=== PATIENT | female | born 1940 | race Caucasian/White ===

== ENCOUNTER 2023-02-21 13:28 | Inpatient (IN) | payer OTHER ==
[~2023-02-21] VITALS: Ht 167.6 cm; Wt 75.2 kg
[2023-02-21] MEDS ORDERED: SODIUM CHLORIDE 0.9% 1,000 ML IV ONE ×2 (13:45→15:00)
[2023-02-21 14:11] LABS: Basophils # (auto) 0.1 10 ^3/uL (0-0.2); Basophils % (auto) 0.5 % (0.0-2.0); Eosinophils # (auto) 0.1 10 ^3/uL (0-0.8); Eosinophils % (auto) 1.3 % (0.0-7.0); Hematocrit 39.8 % (36.0-46.0); Hemoglobin 12.8 g/dL (12.2-16.2); Lymphocytes # (auto) 1.8 10 ^3/uL (0.4-5.4); Lymphocytes % (auto) 15.6 % (10.0-50.0); Mean Corpuscular Hemoglobin 28.2 pg (28.0-32.0); Mean Corpuscular Hgb Conc. 32.1 g/dL (32.0-36.0); Mean Corpuscular Volume 87.8 fL (80.0-100.0); Monocytes % (auto) 8.5 % (0.0-12.0); Neutrophils # (auto) 8.4 10 ^3/uL (1.6-8.6); Neutrophils % (auto) 74.1 % (37.0-80.0); Nucleated Red Blood Cells % 0.1 %; Red Blood Cells 4.53 10^6/uL (4.0-5.20); Red Cell Distribution Width 14.9 % (11.8-14.3); White Blood Cell 11.4 10^3/uL (4.4-10.8)
[2023-02-21 14:29] LABS: Alanine Aminotransferase 49 U/L (7-40); Albumin 3.8 g/dL (3.2-4.8); Alkaline Phosphatase 67 U/L (46-116); Anion Gap 7 (5-15); Aspartate Aminotransferase 43 U/L (13-40); Bilirubin, Total 0.7 mg/dL (0.2-1.0); Blood Urea Nitrogen 26 mg/dL (9-23); Calcium 9.1 mg/dL (8.7-10.4); Carbon Dioxide 27 mmol/L (20-30); Chloride 106 mmol/L (98-107); Glucose 102 mg/dL (74-106); Potassium 3.8 mmol/L (3.5-5.1); Sodium 140 mmol/L (136-145); Total Protein 6.1 g/dL (5.7-8.2)
[2023-02-21] MEDS ORDERED: ONDANSETRON HCL 4 MG/2 ML VIAL IV PRN (15:00)
[2023-02-21] MEDS ORDERED: MORPHINE SULFATE INJ 2 MG/ml SYRG IV PRN (15:00)
[2023-02-21] MEDS ORDERED: NITROGLYCERIN 0.4 MG SL TAB SL PRN (15:00)
[2023-02-21 15:24] LABS: Urine Bacteria FEW /hpf (None Seen); Urine Blood TRACE /uL (Negative); Urine Clarity CLOUDY (Clear); Urine Color Yellow (Yellow); Urine Mucus FEW (None Seen); Urine Protein, UAD 1+ (Negative); Urine Specific Gravity 1.021 (1.001-1.035); Urine WBC 1026 /hpf (0 - 5); Urine pH 7.5 (5.0-8.0)
[2023-02-21] MEDS ORDERED: cefTRIAXone 1GM/50ML D5W 50 ML IV ONE (17:34)
[2023-02-21] MEDS: cefTRIAXone 1GM/50ML D5W 50 ML IV SCH (17:39)
[2023-02-21 17:40] VITALS: PULSE 74; RESP 18; O2SAT 96
[2023-02-21 17:59] LABS: COVID19 ANTIGEN SOFIA FIA NEGATIVE (NEGATIVE)
[2023-02-21] MEDS: ASCORBIC ACID 500 MG TAB PO SCH (22:30)
[2023-02-22] VITALS (9 sets, daily range): BP systolic 100–134; BP diastolic 43–77; PULSE 100–144; RESP 18–20; TEMP 97.7–98.9; O2SAT 92–100
[2023-02-22] MEDS: ACETAMINOPHEN 325 MG TAB PO PRN (03:04)
[2023-02-22] MEDS ORDERED: WARF4TAB70 PO (04:38)
[2023-02-22] MEDS ORDERED: FLUT50SP NAS (04:38)
[2023-02-22] MEDS ORDERED: DILT-100 PO (04:38)
[2023-02-22] MEDS ORDERED: PANT40T PO (04:38)
[2023-02-22] MEDS ORDERED: CHOL100047 PO (04:38)
[2023-02-22] MEDS ORDERED: ATOR-47 PO (04:38)
[2023-02-22] MEDS ORDERED: ALBU108A5 INH (04:38)
[2023-02-22] MEDS ORDERED: ALLO100T PO (04:38)
[2023-02-22] MEDS ORDERED: SERT-206 PO (04:38)
[2023-02-22] MEDS ORDERED: SERT-160 PO (04:38)
[2023-02-22] MEDS ORDERED: GABA-1250 PO (04:38)
[2023-02-22] MEDS ORDERED: FENO145T27 PO (04:38)
[2023-02-22] MEDS ORDERED: MAGN1TAB32 PO (04:39)
[2023-02-22] MEDS ORDERED: dilTIAZem 25 MG/5 ML VIAL IV ONE (05:45)
[2023-02-22 06:44] LABS: Basophils # (auto) 0 10 ^3/uL (0-0.2); Basophils % (auto) 0.5 % (0.0-2.0); Eosinophils # (auto) 0.1 10 ^3/uL (0-0.8); Eosinophils % (auto) 1.8 % (0.0-7.0); Hematocrit 32.8 % (36.0-46.0); Hemoglobin 10.7 g/dL (12.2-16.2); Lymphocytes # (auto) 1.6 10 ^3/uL (0.4-5.4); Lymphocytes % (auto) 19.2 % (10.0-50.0); Mean Corpuscular Hemoglobin 28.8 pg (28.0-32.0); Mean Corpuscular Hgb Conc. 32.7 g/dL (32.0-36.0); Mean Corpuscular Volume 88.1 fL (80.0-100.0); Monocytes # (auto) 0.8 10 ^3/uL (0-1.3); Monocytes % (auto) 10.3 % (0.0-12.0); Neutrophils # (auto) 5.5 10 ^3/uL (1.6-8.6); Neutrophils % (auto) 68.2 % (37.0-80.0); Nucleated Red Blood Cells % 0.1 %; Red Blood Cells 3.73 10^6/uL (4.0-5.20); Red Cell Distribution Width 14.9 % (11.8-14.3); White Blood Cell 8.1 10^3/uL (4.4-10.8)
[2023-02-22 06:50] LABS: Alanine Aminotransferase 35 U/L (7-40); Albumin 3.3 g/dL (3.2-4.8); Alkaline Phosphatase 52 U/L (46-116); Anion Gap 7 (5-15); Aspartate Aminotransferase 25 U/L (13-40); BUN/Creatinine Ratio 17.5 (10.0-20.0); Blood Urea Nitrogen 27 mg/dL (9-23); Calcium 8.7 mg/dL (8.7-10.4); Carbon Dioxide 25 mmol/L (20-30); Chloride 109 mmol/L (98-107); Glucose 104 mg/dL (74-106); Magnesium 1.6 mg/dL (1.6-2.6); Potassium 3.3 mmol/L (3.5-5.1); Sodium 141 mmol/L (136-145)
[2023-02-22 06:51] LABS: Bilirubin, Total 0.7 mg/dL (0.2-1.0); Total Protein 5.5 g/dL (5.7-8.2)
[2023-02-22] MEDS ORDERED: POTASSIUM CHL 20 Meq TABLET PO ONE (08:00)
[2023-02-22] MEDS: ZINC SULFATE 220mg CAP or TAB PO SCH (08:10)
[2023-02-22] MEDS: cefTRIAXone 1GM/50ML D5W 50 ML IV SCH (08:10)
[2023-02-22] MEDS: ASCORBIC ACID 500 MG TAB PO SCH ×2 (08:11→21:39)
[2023-02-22] MEDS: CHOLECALCIFEROL (VITD3) 2,000 UNIT CAP/TAB PO SCH (08:11)
[2023-02-22] MEDS: MAGNESIUM OXIDE 400 MG TAB PO SCH ×2 (08:17→21:39)
[2023-02-22] MEDS: SODIUM CHLORIDE 0.9% 1,000 ML IV SCH ×2 (09:30→19:30)
[2023-02-22] MEDS ORDERED: SODIUM CHLORIDE 0.9% 500 ML IV ONE (09:30)
[2023-02-22] MEDS ORDERED: dilTIAZem 120MG ER CAP PO SCH (10:00)
[2023-02-22] MEDS ORDERED: dilTIAZem 120MG ER CAP PO ONE (11:00)
[2023-02-22 12:18] LABS: INR 1.14 (0.9-1.15); Prothrombin Time 11.9 sec (9.3-11.8)
[2023-02-22] MEDS ORDERED: DIGOXIN (250MCG/ML) 2 ML AMPULE IV ONE (14:00)
[2023-02-22] MEDS ORDERED: WARFARIN SODIUM 5 MG TAB PO ONE (17:00)
[2023-02-22] MEDS: GABAPENTIN 300 MG CAP PO SCH (21:39)
[2023-02-22] MEDS: TEMAZEPAM 15 MG CAP PO PRN (21:40)
[2023-02-22] MEDS: dilTIAZem 120MG ER CAP PO SCH (21:41)
[2023-02-23 05:00] VITALS: BP 121/58; PULSE 82; RESP 20; TEMP 98.2; O2SAT 97
[2023-02-23] MEDS: SODIUM CHLORIDE 0.9% 1,000 ML IV SCH ×3 (05:30→23:54)
[2023-02-23 07:14] LABS: INR 1.19 (0.9-1.15); Partial Thromboplastin Time 23.4 SEC (24.5-34.5); Prothrombin Time 12.4 sec (9.3-11.8)
[2023-02-23 08:00] VITALS: BP 106/53; PULSE 106; PULSE 93; RESP 20; TEMP 98; O2SAT 100
[2023-02-23 10:32] LABS: Basophils # (auto) 0 10 ^3/uL (0-0.2); Basophils % (auto) 0.4 % (0.0-2.0); Eosinophils # (auto) 0.1 10 ^3/uL (0-0.8); Eosinophils % (auto) 1.6 % (0.0-7.0); Hematocrit 35.3 % (36.0-46.0); Hemoglobin 11.3 g/dL (12.2-16.2); Lymphocytes # (auto) 1.3 10 ^3/uL (0.4-5.4); Lymphocytes % (auto) 18.3 % (10.0-50.0); Mean Corpuscular Hemoglobin 28.3 pg (28.0-32.0); Mean Corpuscular Volume 88.6 fL (80.0-100.0); Monocytes # (auto) 0.5 10 ^3/uL (0-1.3); Monocytes % (auto) 7.3 % (0.0-12.0); Neutrophils # (auto) 5.3 10 ^3/uL (1.6-8.6); Neutrophils % (auto) 72.4 % (37.0-80.0); Red Blood Cells 3.98 10^6/uL (4.0-5.20); Red Cell Distribution Width 15.1 % (11.8-14.3); White Blood Cell 7.3 10^3/uL (4.4-10.8)
[2023-02-23] MEDS: cefTRIAXone 1GM/50ML D5W 50 ML IV SCH (10:37)
[2023-02-23] MEDS: CHOLECALCIFEROL (VITD3) 2,000 UNIT CAP/TAB PO SCH (10:43)
[2023-02-23] MEDS: dilTIAZem 120MG ER CAP PO SCH ×2 (10:43→21:49)
[2023-02-23] MEDS: ASCORBIC ACID 500 MG TAB PO SCH ×2 (10:43→21:58)
[2023-02-23] MEDS: GABAPENTIN 300 MG CAP PO SCH ×2 (10:43→21:48)
[2023-02-23] MEDS: ZINC SULFATE 220mg CAP or TAB PO SCH (10:43)
[2023-02-23] MEDS: MAGNESIUM OXIDE 400 MG TAB PO SCH ×2 (10:44→21:48)
[2023-02-23 10:51] LABS: Alanine Aminotransferase 38 U/L (7-40); Albumin 3.6 g/dL (3.2-4.8); Alkaline Phosphatase 61 U/L (46-116); Anion Gap 4 (5-15); Aspartate Aminotransferase 36 U/L (13-40); BUN/Creatinine Ratio 12.9 (10.0-20.0); Blood Urea Nitrogen 13 mg/dL (9-23); Carbon Dioxide 29 mmol/L (20-30); Chloride 112 mmol/L (98-107); Glucose 116 mg/dL (74-106); LDL Cholesterol 85 mg/dL (< 100); Potassium 4.1 mmol/L (3.5-5.1); Sodium 145 mmol/L (136-145); Triglycerides 284 mg/dL (< 150)
[2023-02-23 10:52] LABS: Bilirubin, Total 0.5 mg/dL (0.2-1.0); Cholesterol 195 mg/dL (< 200); HDL Cholesterol 29 mg/dL (40-59); Total Protein 5.9 g/dL (5.7-8.2)
[2023-02-23 11:08] LABS: Magnesium 1.8 mg/dL (1.6-2.6)
[2023-02-23 12:00] VITALS: BP 122/68; PULSE 105; RESP 20; TEMP 98.8; O2SAT 98
[2023-02-23 16:00] VITALS: BP 139/66; PULSE 105; RESP 20; TEMP 98.7; O2SAT 99
[2023-02-23] MEDS ORDERED: WARFARIN SODIUM 5 MG TAB PO ONE (17:00)
[2023-02-23] MEDS ORDERED: DIGOXIN (250MCG/ML) 2 ML AMPULE IV ONE (18:15)
[2023-02-23 20:00] VITALS: BP 130/80; PULSE 105; PULSE 114; RESP 18; O2SAT 98
[2023-02-23] MEDS: TEMAZEPAM 15 MG CAP PO PRN (21:53)
[2023-02-23 22:16] VITALS: BP 123/65; PULSE 128; RESP 19; TEMP 98.4; O2SAT 98
[2023-02-24] VITALS (7 sets, daily range): BP systolic 112–137; BP diastolic 50–86; PULSE 66–129; RESP 17–20; TEMP 98–99; O2SAT 97–100
[2023-02-24 06:02] LABS: INR 1.76 (0.9-1.15); Partial Thromboplastin Time 26.5 SEC (24.5-34.5); Prothrombin Time 17.8 sec (9.3-11.8)
[2023-02-24 06:14] LABS: Anion Gap 6 (5-15); Carbon Dioxide 26 mmol/L (20-30); Chloride 112 mmol/L (98-107); Potassium 3.7 mmol/L (3.5-5.1); Sodium 144 mmol/L (136-145)
[2023-02-24 06:15] LABS: Calcium 8.5 mg/dL (8.7-10.4)
[2023-02-24 06:20] LABS: BUN/Creatinine Ratio 10.6 (10.0-20.0); Blood Urea Nitrogen 10 mg/dL (9-23); Glucose 96 mg/dL (74-106)
[2023-02-24] MEDS: cefTRIAXone 1GM/50ML D5W 50 ML IV SCH (09:24)
[2023-02-24] MEDS: GABAPENTIN 300 MG CAP PO SCH ×2 (09:32→21:58)
[2023-02-24] MEDS: MAGNESIUM OXIDE 400 MG TAB PO SCH ×2 (09:32→21:58)
[2023-02-24] MEDS: ZINC SULFATE 220mg CAP or TAB PO SCH (09:32)
[2023-02-24] MEDS: dilTIAZem 120MG ER CAP PO SCH ×2 (09:33→21:59)
[2023-02-24] MEDS: CHOLECALCIFEROL (VITD3) 2,000 UNIT CAP/TAB PO SCH (09:33)
[2023-02-24] MEDS: ASCORBIC ACID 500 MG TAB PO SCH ×2 (09:34→21:59)
[2023-02-24] MEDS: DIGOXIN (250MCG/ML) 2 ML AMPULE IV SCH (09:35)
[2023-02-24] MEDS: SODIUM CHLORIDE 0.9% 1,000 ML IV SCH (09:49)
[2023-02-24] MEDS ORDERED: FUROSEMIDE 40 MG/4 ML VIAL IV ONE (15:15)
[2023-02-24] MEDS ORDERED: WARFARIN SODIUM 2 MG TAB PO ONE (17:00)
[2023-02-24] MEDS: guaiFENesin-DM 100/10mg/5ml SYR PO PRN ×2 (18:13→22:26)
[2023-02-24] MEDS: TEMAZEPAM 15 MG CAP PO PRN (21:58)
[2023-02-25] VITALS (9 sets, daily range): BP systolic 118–150; BP diastolic 55–74; PULSE 61–126; RESP 18–22; TEMP 97.9–98.5; O2SAT 92–99
[2023-02-25] MEDS: guaiFENesin-DM 100/10mg/5ml SYR PO PRN ×2 (04:47→16:01)
[2023-02-25 05:50] LABS: Calcium 8.6 mg/dL (8.7-10.4); Chloride 106 mmol/L (98-107); Potassium 3.6 mmol/L (3.5-5.1); Sodium 141 mmol/L (136-145)
[2023-02-25 05:51] LABS: Anion Gap 5 (5-15); Carbon Dioxide 30 mmol/L (20-30)
[2023-02-25 05:57] LABS: BUN/Creatinine Ratio 7.8 (10.0-20.0); Blood Urea Nitrogen 7 mg/dL (9-23); Glucose 101 mg/dL (74-106)
[2023-02-25 06:05] LABS: INR 1.91 (0.9-1.15); Partial Thromboplastin Time 40.4 SEC (24.5-34.5); Prothrombin Time 19.2 sec (9.3-11.8)
[2023-02-25] MEDS: cefTRIAXone 1GM/50ML D5W 50 ML IV SCH (09:11)
[2023-02-25] MEDS: ZINC SULFATE 220mg CAP or TAB PO SCH (09:59)
[2023-02-25] MEDS: GABAPENTIN 300 MG CAP PO SCH ×2 (10:00→22:48)
[2023-02-25] MEDS: ASCORBIC ACID 500 MG TAB PO SCH ×2 (10:00→22:49)
[2023-02-25] MEDS: MAGNESIUM OXIDE 400 MG TAB PO SCH ×2 (10:00→22:48)
[2023-02-25] MEDS ORDERED: methylPREDNISolone SOD SUCC 125 MG/2 ML VL IV ONE (10:00)
[2023-02-25] MEDS: dilTIAZem 120MG ER CAP PO SCH ×2 (10:00→22:49)
[2023-02-25] MEDS: CHOLECALCIFEROL (VITD3) 2,000 UNIT CAP/TAB PO SCH (10:00)
[2023-02-25] MEDS: DIGOXIN (250MCG/ML) 2 ML AMPULE IV SCH (10:01)
[2023-02-25] MEDS: AZITHROMYCIN 500MG/ 250ML 250 ML IV SCH (12:03)
[2023-02-25] MEDS ORDERED: WARFARIN SODIUM 2 MG TAB PO ONE (17:00)
[2023-02-25] MEDS: methylPREDNISolone SOD SUCC 125 MG/2 ML VL IV SCH (22:50)
[2023-02-25] MEDS: TEMAZEPAM 15 MG CAP PO PRN (22:53)
[2023-02-26] VITALS (11 sets, daily range): BP systolic 118–144; BP diastolic 49–80; PULSE 91–97; RESP 18–26; TEMP 97.8–98.4; O2SAT 95–100
[2023-02-26 07:05] LABS: Basophils # (auto) 0 10 ^3/uL (0-0.2); Basophils % (auto) 0.2 % (0.0-2.0); Eosinophils # (auto) 0 10 ^3/uL (0-0.8); Hematocrit 32.3 % (36.0-46.0); Hemoglobin 10.6 g/dL (12.2-16.2); Lymphocytes # (auto) 0.6 10 ^3/uL (0.4-5.4); Lymphocytes % (auto) 17.7 % (10.0-50.0); Mean Corpuscular Hemoglobin 28.8 pg (28.0-32.0); Mean Corpuscular Hgb Conc. 32.7 g/dL (32.0-36.0); Monocytes # (auto) 0.1 10 ^3/uL (0-1.3); Monocytes % (auto) 3.6 % (0.0-12.0); Neutrophils # (auto) 2.7 10 ^3/uL (1.6-8.6); Neutrophils % (auto) 78.5 % (37.0-80.0); Red Blood Cells 3.67 10^6/uL (4.0-5.20); Red Cell Distribution Width 15.5 % (11.8-14.3); White Blood Cell 3.4 10^3/uL (4.4-10.8)
[2023-02-26 07:14] LABS: INR 2.62 (0.9-1.15); Partial Thromboplastin Time 41.2 SEC (24.5-34.5); Prothrombin Time 25.8 sec (9.3-11.8)
[2023-02-26] MEDS: ZINC SULFATE 220mg CAP or TAB PO SCH (08:41)
[2023-02-26] MEDS: GABAPENTIN 300 MG CAP PO SCH ×2 (08:41→21:55)
[2023-02-26] MEDS: MAGNESIUM OXIDE 400 MG TAB PO SCH ×2 (08:41→21:55)
[2023-02-26] MEDS: ASCORBIC ACID 500 MG TAB PO SCH ×2 (08:41→21:55)
[2023-02-26] MEDS: CHOLECALCIFEROL (VITD3) 2,000 UNIT CAP/TAB PO SCH (08:41)
[2023-02-26] MEDS: cefTRIAXone 1GM/50ML D5W 50 ML IV SCH (08:44)
[2023-02-26] MEDS: methylPREDNISolone SOD SUCC 125 MG/2 ML VL IV SCH ×2 (08:44→21:56)
[2023-02-26] MEDS: dilTIAZem 120MG ER CAP PO SCH ×2 (09:20→21:52)
[2023-02-26] MEDS: AZITHROMYCIN 500MG/ 250ML 250 ML IV SCH (11:32)
[2023-02-26] MEDS: DIGOXIN 0.125 MG TAB PO SCH (11:32)
[2023-02-26] MEDS: ALBUTEROL MEDNEB 2.5 mg/3ml NEB NEB PRN (18:50)
[2023-02-26] MEDS: IPRATROPIUM BROM 0.5 MG/2.5ML INH SOL NEB PRN (18:50)
[2023-02-26] MEDS: TEMAZEPAM 15 MG CAP PO PRN (21:55)
[2023-02-26] MEDS: BUDESONIDE (INHALATION) 0.5 MG/2 ML NEB NEB SCH (22:00)
[2023-02-27] VITALS (12 sets, daily range): BP systolic 123–144; BP diastolic 45–72; PULSE 81–107; RESP 18–20; TEMP 97.7–98.6; O2SAT 95–99
[2023-02-27 06:02] LABS: INR 2.9 (0.9-1.15); Prothrombin Time 28.4 sec (9.3-11.8)
[2023-02-27] MEDS: BUDESONIDE (INHALATION) 0.5 MG/2 ML NEB NEB SCH ×2 (06:45→19:32)
[2023-02-27] MEDS: ALBUTEROL MEDNEB 2.5 mg/3ml NEB NEB PRN ×2 (06:46→19:32)
[2023-02-27] MEDS: IPRATROPIUM BROM 0.5 MG/2.5ML INH SOL NEB PRN ×2 (06:46→19:32)
[2023-02-27] MEDS: ZINC SULFATE 220mg CAP or TAB PO SCH (08:34)
[2023-02-27] MEDS: ASCORBIC ACID 500 MG TAB PO SCH ×2 (08:34→21:12)
[2023-02-27] MEDS: MAGNESIUM OXIDE 400 MG TAB PO SCH ×2 (08:34→21:12)
[2023-02-27] MEDS: GABAPENTIN 300 MG CAP PO SCH ×2 (08:35→21:12)
[2023-02-27] MEDS: DIGOXIN 0.125 MG TAB PO SCH (08:35)
[2023-02-27] MEDS: dilTIAZem 120MG ER CAP PO SCH ×2 (08:36→21:16)
[2023-02-27] MEDS: CHOLECALCIFEROL (VITD3) 2,000 UNIT CAP/TAB PO SCH (08:36)
[2023-02-27] MEDS: cefTRIAXone 1GM/50ML D5W 50 ML IV SCH (08:37)
[2023-02-27] MEDS: methylPREDNISolone SOD SUCC 125 MG/2 ML VL IV SCH ×2 (08:37→21:12)
[2023-02-27] MEDS: AZITHROMYCIN 500MG/ 250ML 250 ML IV SCH (10:08)
[2023-02-27] MEDS: TEMAZEPAM 15 MG CAP PO PRN (21:20)
[2023-02-28] VITALS (16 sets, daily range): BP systolic 121–155; BP diastolic 49–79; PULSE 72–91; RESP 16–20; TEMP 97.7–99.2; O2SAT 94–99
[2023-02-28] MEDS: BUDESONIDE (INHALATION) 0.5 MG/2 ML NEB NEB SCH ×2 (06:09→22:20)
[2023-02-28] MEDS: ALBUTEROL MEDNEB 2.5 mg/3ml NEB NEB PRN ×3 (06:09→14:56)
[2023-02-28] MEDS: IPRATROPIUM BROM 0.5 MG/2.5ML INH SOL NEB PRN ×3 (06:09→14:56)
[2023-02-28 06:56] LABS: Basophils # (auto) 0 10 ^3/uL (0-0.2); Eosinophils # (auto) 0 10 ^3/uL (0-0.8); Hematocrit 34.1 % (36.0-46.0); Hemoglobin 11.1 g/dL (12.2-16.2); Lymphocytes # (auto) 0.6 10 ^3/uL (0.4-5.4); Lymphocytes % (auto) 7.6 % (10.0-50.0); Mean Corpuscular Hemoglobin 28.9 pg (28.0-32.0); Mean Corpuscular Hgb Conc. 32.7 g/dL (32.0-36.0); Mean Corpuscular Volume 88.6 fL (80.0-100.0); Monocytes # (auto) 0.2 10 ^3/uL (0-1.3); Monocytes % (auto) 2.8 % (0.0-12.0); Neutrophils # (auto) 7.4 10 ^3/uL (1.6-8.6); Neutrophils % (auto) 89.6 % (37.0-80.0); Red Blood Cells 3.85 10^6/uL (4.0-5.20); Red Cell Distribution Width 15.7 % (11.8-14.3); White Blood Cell 8.2 10^3/uL (4.4-10.8)
[2023-02-28 06:57] LABS: INR 2.93 (0.9-1.15); Partial Thromboplastin Time 42.2 SEC (24.5-34.5); Prothrombin Time 28.7 sec (9.3-11.8)
[2023-02-28] MEDS: methylPREDNISolone SOD SUCC 40 MG/ML VL IV SCH ×2 (09:43→21:22)
[2023-02-28] MEDS: cefTRIAXone 1GM/50ML D5W 50 ML IV SCH (09:45)
[2023-02-28] MEDS: ASCORBIC ACID 500 MG TAB PO SCH ×2 (09:49→21:25)
[2023-02-28] MEDS: ZINC SULFATE 220mg CAP or TAB PO SCH (09:50)
[2023-02-28] MEDS: GABAPENTIN 300 MG CAP PO SCH ×2 (09:50→21:24)
[2023-02-28] MEDS: MAGNESIUM OXIDE 400 MG TAB PO SCH ×2 (09:50→21:23)
[2023-02-28] MEDS: DIGOXIN 0.125 MG TAB PO SCH (09:50)
[2023-02-28] MEDS: dilTIAZem 120MG ER CAP PO SCH ×2 (09:50→21:57)
[2023-02-28] MEDS: CHOLECALCIFEROL (VITD3) 2,000 UNIT CAP/TAB PO SCH (09:50)
[2023-02-28] MEDS: AZITHROMYCIN 500MG/ 250ML 250 ML IV SCH (12:25)
[2023-02-28] MEDS ORDERED: WARFARIN SODIUM 1 MG TAB PO ONE (17:00)
[2023-02-28] MEDS: TEMAZEPAM 15 MG CAP PO PRN (21:23)
[2023-03-01] VITALS (14 sets, daily range): BP systolic 135–155; BP diastolic 59–79; PULSE 78–89; RESP 18–22; TEMP 97.9–98.9; O2SAT 91–100
[2023-03-01] MEDS: guaiFENesin-DM 100/10mg/5ml SYR PO PRN (04:22)
[2023-03-01] MEDS: IPRATROPIUM BROM 0.5 MG/2.5ML INH SOL NEB PRN ×3 (04:41→14:57)
[2023-03-01] MEDS: ALBUTEROL MEDNEB 2.5 mg/3ml NEB NEB PRN ×4 (04:41→22:37)
[2023-03-01 06:31] LABS: INR 3.26 (0.9-1.15); Prothrombin Time 31.7 sec (9.3-11.8)
[2023-03-01] MEDS: cefTRIAXone 1GM/50ML D5W 50 ML IV SCH (08:16)
[2023-03-01] MEDS: methylPREDNISolone SOD SUCC 40 MG/ML VL IV SCH ×2 (08:51→21:28)
[2023-03-01] MEDS: dilTIAZem 120MG ER CAP PO SCH ×2 (08:52→21:28)
[2023-03-01] MEDS: ZINC SULFATE 220mg CAP or TAB PO SCH (08:53)
[2023-03-01] MEDS: CHOLECALCIFEROL (VITD3) 2,000 UNIT CAP/TAB PO SCH (08:53)
[2023-03-01] MEDS: AZITHROMYCIN 250 MG TAB PO SCH (08:53)
[2023-03-01] MEDS: ASCORBIC ACID 500 MG TAB PO SCH ×2 (08:53→21:29)
[2023-03-01] MEDS: GABAPENTIN 300 MG CAP PO SCH ×2 (08:54→21:28)
[2023-03-01] MEDS: DIGOXIN 0.125 MG TAB PO SCH (08:54)
[2023-03-01] MEDS: MAGNESIUM OXIDE 400 MG TAB PO SCH ×2 (08:54→21:29)
[2023-03-01] MEDS: BUDESONIDE (INHALATION) 0.5 MG/2 ML NEB NEB SCH ×2 (10:31→22:37)
[2023-03-01] MEDS: ACETAMINOPHEN 325 MG TAB PO PRN (21:29)
[2023-03-01] MEDS: TEMAZEPAM 15 MG CAP PO PRN (21:29)
[2023-03-01 23:27] LABS: Basophils # (auto) 0 10 ^3/uL (0-0.2); Basophils % (auto) 0.1 % (0.0-2.0); Eosinophils # (auto) 0 10 ^3/uL (0-0.8); Hematocrit 34.4 % (36.0-46.0); Hemoglobin 11.1 g/dL (12.2-16.2); Lymphocytes % (auto) 15.1 % (10.0-50.0); Mean Corpuscular Hemoglobin 28.5 pg (28.0-32.0); Mean Corpuscular Hgb Conc. 32.3 g/dL (32.0-36.0); Mean Corpuscular Volume 88.2 fL (80.0-100.0); Monocytes # (auto) 0.3 10 ^3/uL (0-1.3); Monocytes % (auto) 4.4 % (0.0-12.0); Neutrophils # (auto) 5.5 10 ^3/uL (1.6-8.6); Neutrophils % (auto) 80.4 % (37.0-80.0); Red Cell Distribution Width 15.9 % (11.8-14.3); White Blood Cell 6.8 10^3/uL (4.4-10.8)
[2023-03-01 23:41] LABS: INR 3.45 (0.9-1.15); Partial Thromboplastin Time 38.2 SEC (24.5-34.5); Prothrombin Time 33.4 sec (9.3-11.8)
[2023-03-02] VITALS (12 sets, daily range): BP systolic 125–150; BP diastolic 55–73; PULSE 73–90; RESP 18–20; TEMP 97.9–99.2; O2SAT 96–99
[2023-03-02 06:15] LABS: INR 3.22 (0.9-1.15); Prothrombin Time 31.3 sec (9.3-11.8)
[2023-03-02] MEDS: cefTRIAXone 1GM/50ML D5W 50 ML IV SCH (09:23)
[2023-03-02] MEDS: BUDESONIDE (INHALATION) 0.5 MG/2 ML NEB NEB SCH ×2 (09:37→18:02)
[2023-03-02] MEDS: ALBUTEROL MEDNEB 2.5 mg/3ml NEB NEB PRN ×3 (09:37→22:07)
[2023-03-02] MEDS ORDERED: AZIT-74 PO (11:31)
[2023-03-02] MEDS ORDERED: METH4PAK PO ×2 (11:31)
[2023-03-02] MEDS ORDERED: DEXA20TA PO (11:33)
[2023-03-02] MEDS: AZITHROMYCIN 250 MG TAB PO SCH (12:07)
[2023-03-02] MEDS: ZINC SULFATE 220mg CAP or TAB PO SCH (12:08)
[2023-03-02] MEDS: dilTIAZem 120MG ER CAP PO SCH ×2 (12:08→21:25)
[2023-03-02] MEDS: ASCORBIC ACID 500 MG TAB PO SCH ×2 (12:08→21:24)
[2023-03-02] MEDS: MAGNESIUM OXIDE 400 MG TAB PO SCH ×2 (12:08→21:23)
[2023-03-02] MEDS: GABAPENTIN 300 MG CAP PO SCH ×2 (12:08→21:23)
[2023-03-02] MEDS: DIGOXIN 0.125 MG TAB PO SCH (12:09)
[2023-03-02] MEDS: CHOLECALCIFEROL (VITD3) 2,000 UNIT CAP/TAB PO SCH (12:09)
[2023-03-02] MEDS: methylPREDNISolone SOD SUCC 40 MG/ML VL IV SCH ×2 (13:52→21:23)
[2023-03-02 15:14] LABS: Basophils # (auto) 0 10 ^3/uL (0-0.2); Basophils % (auto) 0.1 % (0.0-2.0); Eosinophils # (auto) 0 10 ^3/uL (0-0.8); Hematocrit 35.6 % (36.0-46.0); Hemoglobin 11.5 g/dL (12.2-16.2); Lymphocytes # (auto) 0.9 10 ^3/uL (0.4-5.4); Lymphocytes % (auto) 10.5 % (10.0-50.0); Mean Corpuscular Hemoglobin 28.4 pg (28.0-32.0); Mean Corpuscular Hgb Conc. 32.2 g/dL (32.0-36.0); Mean Corpuscular Volume 88.4 fL (80.0-100.0); Monocytes # (auto) 0.8 10 ^3/uL (0-1.3); Monocytes % (auto) 9.3 % (0.0-12.0); Neutrophils % (auto) 80.1 % (37.0-80.0); Nucleated Red Blood Cells % 0.1 %; Red Blood Cells 4.03 10^6/uL (4.0-5.20); Red Cell Distribution Width 15.7 % (11.8-14.3); White Blood Cell 8.7 10^3/uL (4.4-10.8)
[2023-03-02 15:22] LABS: Alanine Aminotransferase 31 U/L (7-40); Albumin 3.4 g/dL (3.2-4.8); Alkaline Phosphatase 79 U/L (46-116); Anion Gap 4 (5-15); Aspartate Aminotransferase 22 U/L (13-40); BUN/Creatinine Ratio 33.7 (10.0-20.0); Blood Urea Nitrogen 31 mg/dL (9-23); Calcium 8.7 mg/dL (8.7-10.4); Carbon Dioxide 32 mmol/L (20-30); Chloride 105 mmol/L (98-107); Glucose 135 mg/dL (74-106); Potassium 4.5 mmol/L (3.5-5.1); Sodium 141 mmol/L (136-145)
[2023-03-02 15:23] LABS: Bilirubin, Total 0.3 mg/dL (0.2-1.0); Total Protein 5.5 g/dL (5.7-8.2)
[2023-03-02] MEDS: IPRATROPIUM BROM 0.5 MG/2.5ML INH SOL NEB PRN ×2 (18:02→22:07)
[2023-03-02] MEDS: PANTOPRAZOLE 40 MG/10 ML VIAL INJ IV SCH (21:23)
[2023-03-02] MEDS: ACETAMINOPHEN 325 MG TAB PO PRN (21:25)
[2023-03-02] MEDS: TEMAZEPAM 15 MG CAP PO PRN (21:25)
[2023-03-02] MEDS: HYDROCORTISONE 2.5% TOPICAL CREAM 30GM TUBE PR SCH (21:28)
[2023-03-03] VITALS (12 sets, daily range): BP systolic 137–154; BP diastolic 61–78; PULSE 80–94; RESP 16–22; TEMP 98–98.2; O2SAT 94–98
[2023-03-03 07:52] LABS: INR 2.49 (0.9-1.15); Partial Thromboplastin Time 35.7 SEC (24.5-34.5); Prothrombin Time 24.6 sec (9.3-11.8)
[2023-03-03] MEDS: methylPREDNISolone SOD SUCC 40 MG/ML VL IV SCH ×2 (09:55→21:31)
[2023-03-03] MEDS: PANTOPRAZOLE 40 MG/10 ML VIAL INJ IV SCH ×2 (09:55→21:31)
[2023-03-03] MEDS: AZITHROMYCIN 250 MG TAB PO SCH (09:56)
[2023-03-03] MEDS: dilTIAZem 120MG ER CAP PO SCH ×2 (09:56→21:32)
[2023-03-03] MEDS: GABAPENTIN 300 MG CAP PO SCH ×2 (09:56→21:32)
[2023-03-03] MEDS: MAGNESIUM OXIDE 400 MG TAB PO SCH ×2 (09:56→21:32)
[2023-03-03] MEDS: DIGOXIN 0.125 MG TAB PO SCH (09:56)
[2023-03-03] MEDS: CHOLECALCIFEROL (VITD3) 2,000 UNIT CAP/TAB PO SCH (09:56)
[2023-03-03] MEDS: ASCORBIC ACID 500 MG TAB PO SCH ×2 (09:56→21:32)
[2023-03-03] MEDS: ZINC SULFATE 220mg CAP or TAB PO SCH (09:56)
[2023-03-03] MEDS: DOCUSATE SOD 100 MG CAP PO SCH (09:57)
[2023-03-03] MEDS: cefTRIAXone 1GM/50ML D5W 50 ML IV SCH (09:57)
[2023-03-03] MEDS: HYDROCORTISONE 2.5% TOPICAL CREAM 30GM TUBE PR SCH ×2 (10:00→21:32)
[2023-03-03] MEDS: BUDESONIDE (INHALATION) 0.5 MG/2 ML NEB NEB SCH ×2 (11:54→18:33)
[2023-03-03] MEDS: ALBUTEROL MEDNEB 2.5 mg/3ml NEB NEB PRN ×2 (11:56→18:33)
[2023-03-03] MEDS: IPRATROPIUM BROM 0.5 MG/2.5ML INH SOL NEB PRN (11:56)
[2023-03-03] MEDS ORDERED: WARFARIN SODIUM 2 MG TAB PO ONE (17:00)
[2023-03-03] MEDS: TEMAZEPAM 15 MG CAP PO PRN (21:32)
[2023-03-04] VITALS (9 sets, daily range): BP systolic 143–149; BP diastolic 57–69; PULSE 70–80; RESP 18–20; TEMP 97.8–98.3; O2SAT 94–100
[2023-03-04 06:23] LABS: INR 3.02 (0.9-1.15); Prothrombin Time 29.5 sec (9.3-11.8)
[2023-03-04] MEDS: BUDESONIDE (INHALATION) 0.5 MG/2 ML NEB NEB SCH (06:49)
[2023-03-04] MEDS: DOCUSATE SOD 100 MG CAP PO SCH (09:37)
[2023-03-04] MEDS: cefTRIAXone 1GM/50ML D5W 50 ML IV SCH (09:37)
[2023-03-04] MEDS: PANTOPRAZOLE 40 MG/10 ML VIAL INJ IV SCH (09:37)
[2023-03-04] MEDS: methylPREDNISolone SOD SUCC 40 MG/ML VL IV SCH (09:37)
[2023-03-04] MEDS: ASCORBIC ACID 500 MG TAB PO SCH (09:38)
[2023-03-04] MEDS: ZINC SULFATE 220mg CAP or TAB PO SCH (09:39)
[2023-03-04] MEDS: CHOLECALCIFEROL (VITD3) 2,000 UNIT CAP/TAB PO SCH (09:39)
[2023-03-04] MEDS: MAGNESIUM OXIDE 400 MG TAB PO SCH (09:40)
[2023-03-04] MEDS: GABAPENTIN 300 MG CAP PO SCH (09:41)
[2023-03-04] MEDS: dilTIAZem 120MG ER CAP PO SCH (09:42)
[2023-03-04] MEDS: DIGOXIN 0.125 MG TAB PO SCH (09:42)
[2023-03-04] MEDS: AZITHROMYCIN 250 MG TAB PO SCH (09:43)
[2023-03-04] MEDS: HYDROCORTISONE 2.5% TOPICAL CREAM 30GM TUBE PR SCH (09:57)
[2023-03-04] MEDS: IPRATROPIUM BROM 0.5 MG/2.5ML INH SOL NEB PRN (11:18)
[2023-03-04] MEDS: ALBUTEROL MEDNEB 2.5 mg/3ml NEB NEB PRN (11:18)
[2023-03-04] MEDS ORDERED: TEMA15CA2 PO (12:41)
== END 2023-03-04 16:50 | disposition home health service (06) | DRG 640 ==
LOC: ER 13:28 → TELE 15:01 → TELE-EAST 02-22 01:56
PROVIDERS: ADMIT Internal Medicine Geriatric Medicine; ATTEND Internal Medicine
DX: E86.0 Dehydration (principal); J96.21 Acute and chronic respiratory failure with hypoxia; N17.0 Acute kidney failure with tubular necrosis; J44.1 Chronic obstructive pulmonary disease with (acute) exacerbation; J98.11 Atelectasis; N39.0 Urinary tract infection, site not specified; J91.8 Pleural effusion in other conditions classified elsewhere; E87.1 Hypo-osmolality and hyponatremia; E83.42 Hypomagnesemia; E87.6 Hypokalemia; E78.2 Mixed hyperlipidemia; J44.9 Chronic obstructive pulmonary disease, unspecified; I48.91 Unspecified atrial fibrillation; M10.9 Gout, unspecified; Z96.649 Presence of unspecified artificial hip joint; K64.9 Unspecified hemorrhoids; I11.0 Hypertensive heart disease with heart failure; Z20.822 Contact with and (suspected) exposure to COVID-19; I50.9 Heart failure, unspecified; Z86.16 Personal history of COVID-19; Z79.01 Long term (current) use of anticoagulants; Z82.3 Family history of stroke; Z82.49 Family history of ischemic heart disease and other diseases of the circulatory system; Z90.710 Acquired absence of both cervix and uterus; Z95.0 Presence of cardiac pacemaker; Z79.899 Other long term (current) drug therapy; U09.9 Post COVID-19 condition, unspecified
CPT/HCPCS: 36415; 70450; 71045; 80048; 80053; 80061; 80162; 81001; 82270; 82962; 83735; 84484; 85025; 85610; 85730; 86850; 86900; 86901; 87426; 93005; 93306; 94640; 97110; 97116; 97163; 97530; C9113; G0378; J0696; J2405